=== PATIENT | male | born 1985 | race Caucasian/White ===

== ENCOUNTER 2019-07-14 15:34 | Outpatient (CLI) | payer BC ==
--- NOTE | 2019-07-14 16:15 | ULT ---
Testicular ultrasound INDICATION: Left testicular swelling for 3 to 4 months TECHNIQUE: Grayscale, color Doppler spectral Doppler images were obtained of the scrotum. COMPARISON: None. FINDINGS: Right testicle: The right testicle measured 5.0 x 3.2 x 3.2cm. There is normal vascular flow to the r ight testicle there is a small right-sided hydrocele. There are at least 3 separate epididymal head cysts seen on the right. One of largest measures 5 mm. Left testicle: The left testicle measured 5.5 x 2.8 x 3.4cm. There is normal vascular flow to left te sticle. There is a large left hydroceleThe left epididymis appears within normal limits. Additional findings: None. Impression: 1. Large left and small right hydrocele. 2. No intratesticular mass or torsion demonstrated. 3. Small epididymal head cysts involving the right epididymis.
== END 2019-07-14 15:35 | disposition home or self-care (01) ==
LOC: BICULT 15:34
PROVIDERS: ATTEND Family Medicine
DX: N50.89 Other specified disorders of the male genital organs (principal); N43.3 Hydrocele, unspecified; L72.0 Epidermal cyst
CPT/HCPCS: 76870; 93976